=== PATIENT | male | born 1960 | race Caucasian/White ===

== ENCOUNTER 2019-02-24 12:01 | Emergency (ER) | payer BC ==
[~2019-02-24] VITALS: Ht 182.9 cm; Wt 102.1 kg
[2019-02-24 12:09] VITALS: BP 146/96
[2019-02-24] MEDS ORDERED: SYNTHROID75 MCG ORAL (12:39)
[2019-02-24] MEDS ORDERED: NEXIUM40 MG ORAL (12:39)
[2019-02-24] MEDS ORDERED: LEXAPRO10 MG ORAL (12:39)
[2019-02-24] MEDS ORDERED: FLOMAX0.4 MG ORAL (12:39)
[2019-02-24] MEDS: Mylanta II UD 30ml ORAL ONE (12:44)
[2019-02-24] MEDS: Dicyclomine HCl 10mg/5ml oral soln ORAL ONE (12:44)
[2019-02-24] MEDS: Lidocaine 2% Visc 15ml soln ORAL ONE (12:44)
[2019-02-24 12:55] LABS: ANION GAP 9 mmol/L (5-15); BLOOD UREA NITROGEN 15 mg/dL (7-18); CALCIUM 9.5 MG/DL (8.5-10.1); CARBON DIOXIDE 27 MMOL/L (21-32); CHLORIDE 105 MMOL/L (98-107); CREATININE 1.1 MG/DL (0.55-1.30); POTASSIUM 3.9 MMOL/L (3.5-5.1); SODIUM 141 MMOL/L (136-145)
[2019-02-24 13:01] LABS: ALANINE AMINOTRANSFERASE 28 U/L (12-78); ALBUMIN 4.3 G/DL (3.4-5.0); ALBUMIN/GLOBULIN RATIO 1.5 (1.0-2.7); ALKALINE PHOSPHATASE 50 U/L (46-116); ASPARTATE AMINO TRANSFERASE 21 U/L (15-37); BILIRUBIN,TOTAL 0.7 MG/DL (0.2-1.0)
[2019-02-24 13:04] LABS: BASOPHILS % (AUTO) 1.3 % (0.0-2.0); EOSINOPHILS % (AUTO) 1.1 % (0.0-3.0); HEMATOCRIT 49.1 % (42.0-52.0); HEMOGLOBIN 15.9 G/DL (14.2-18.0); LYMPHOCYTES % (AUTO) 30.8 % (20.0-45.0); MEAN CORPUSCULAR VOLUME 87 FL (80-99); MONOCYTES % (AUTO) 8.7 % (1.0-10.0); NEUTROPHILS % (AUTO) 58.1 % (45.0-75.0); PLATELET COUNT 176 K/UL (150-450); RED BLOOD COUNT 5.67 M/UL (4.70-6.10); RED CELL DISTRIBUTION WIDTH 12.4 % (11.6-14.8); WHITE BLOOD COUNT 7.9 K/UL (4.8-10.8)
--- NOTE | 2019-02-24 14:15 | Diagnostic Imaging Report ---
Indication: Right upper quadrant pain Technique: Chatman-scale and duplex images of the upper abdomen were obtained Comparison: none Findings: Gallbladder is unremarkable, without stones, wall thickening, nor pericholecystic fluid. Sonographic Tapia's sign is negative. Common bile duct measures 3 mm in diameter. No intrahepatic biliary ductal dilatation. Liver is borderline enlarged, demonstrates normal echogenicity, no focal abnormality. Portal vein and hepatic veins are patent. Pancreas is incompletely visualized due to overlying bowel gas, visualized portions are unremarkable. Spleen is borderline enlarged, measuring 12.9 cm long axis dimension. Left kidney measures 12.8 cm in length. Right kidney measures 11.9 cm length. Both kidneys demonstrate normal echogenicity. There is no hydronephrosis. There is a large right renal parapelvic cyst which measures 6.8 cm in diameter. No focal renal abnormality on the left . Abdominal aorta is obscured by bowel gas . Impression: Somewhat limited exam; bowel gas obscures aorta and portions of the pancreas Negative for gallstones or dilated ducts Borderline hepatomegaly Borderline splenomegaly Large right renal parapelvic cyst incidentally noted
[2019-02-24 14:42] LABS: APPEARANCE,URINE CLEAR; BILIRUBIN, URINE NEGATIVE (NEGATIVE); COLOR,URINE PALE YELLOW; GLUCOSE, URINE (UA) NEGATIVE (NEGATIVE); KETONES,URINE NEGATIVE (NEGATIVE); LEUKOCYTE ESTERASE ,URINE 1+ (NEGATIVE); NITRITE,URINE NEGATIVE (NEGATIVE); PH,URINE 7 (4.5-8.0); PROTEIN,URINE NEGATIVE (NEGATIVE); UROBILINOGEN,URINE NORMAL MG/DL (0.0-1.0)
--- NOTE | 2019-02-24 15:19 | Emergency Room Report ---
History of Present Illness General Chief Complaint: Abdominal Pain Source: Patient Present Illness HPI 58-year-old male presents to the emergency department complaining of 2 out of 10 severity right-sided abdominal pain off and on for 3 days. Patient also is reporting diarrhea x1 week. Denies nausea or vomiting, fevers or chills. He denies recent travel or ill contacts he also denies blood in the stool or black tarry stools. Patient reports history of IBS which he typically manages with OTC [place] medication. He reports he took some Imodium with no relief. Denies recent abx use. He also reports that he had similar symptoms 6 months ago and had a CAT scan performed and blood work all of which were normal. No specific aggravating or relieving factors. Denies migration of his pain. Denies dysuria, hematuria or hx of renal calculi. Allergies: Coded Allergies: No Known Allergies (Unverified , 02/24/19) Patient History Past Medical History: see triage record Past Surgical History: none Pertinent Family History: none Reviewed Nursing Documentation: PMH: Agreed; PSxH: Agreed Nursing Documentation-PMH Past Medical History: No History, Except For Hx Gastrointestinal Problems: Yes - IBS Review of Systems All Other Systems: negative except mentioned in HPI Physical Exam Vital Signs Date Time Temp Pulse Resp B/P (MAP) Pulse Ox O2 Delivery O2 Flow Rate FiO2 02/24/19 12:09 98.6 69 18 146/96 95 Room Air Sp02 EP Interpretation: reviewed, normal General Appearance: no apparent distress, alert, GCS 15, non-toxic Head: normocephalic, atraumatic Eyes: bilateral eye normal inspection, bilateral eye PERRL ENT: hearing grossly normal, normal voice Neck: full range of motion Respiratory: chest non-tender, lungs clear, normal breath sounds, speaking full sentences Cardiovascular #1: regular rate, rhythm Gastrointestinal: normal bowel sounds - hyperactive in all 4 quadrants, soft, non-distended, no guarding, tenderness - mild tenderness to deep palpation of the RUQ, little to no RLQ tenderness to deep palpation. Abdomen was soft. Rectal: deferred Musculoskeletal: back normal, gait/station normal, normal range of motion, non- tender Neurologic: alert, oriented x3, responsive, motor strength/tone normal, sensory intact, speech normal, grossly normal Psychiatric: judgement/insight normal Medical Decision Making PA Attestation Dr. Polanco is my supervising Physician whom patient management has been discussed with. Diagnostic Impression: Primary Impression: Abdominal pain Qualified Codes: R10.11 - Right upper quadrant pain Additional Impressions: Diarrhea Qualified Codes: R19.7 - Diarrhea, unspecified Renal cyst ER Course 58-year-old male presents to the emergency department complaining of 2 out of 10 severity right-sided abdominal pain off and on for 3 days. Patient also is reporting diarrhea x1 week. Denies nausea or vomiting, fevers or chills. He denies recent travel or ill contacts he also denies blood in the stool or black tarry stools. Patient reports history of IBS which he typically manages with OTC [place] medication. He reports he took some Imodium with no relief. Denies recent abx use. He also reports that he had similar symptoms 6 months ago and had a CAT scan performed and blood work all of which were normal. No specific aggravating or relieving factors. Denies migration of his pain. Denies dysuria, hematuria or hx of renal calculi. Ddx considered but are not limited to IBS exacerbation, Diverticulitis, acute appendicitis, diarrhea, UC, PUD, GE, pancreatitis, gallstone, renal calculi just to name a few. Vital signs: are WNL, pt. is afebrile H&PE are most consistent with IBS exacerbation - Pt has a fairly benign abdominal exam, non-toxic in appearance , NAD. ORDERS: -CBC, CMP, lipase, UA--All WNL - Abdominal US: "abnormal impression with : 6.8 right renal parapelvic cyst." Per official radiology report- Please see report for specific details. These findings were discussed with patient along with other findings mentioned by radiologist. Pt. was given a copy of the official report to take with him for follow up regarding the abnormal results. ED INTERVENTIONS: - Pepcid PO -GI Cocktail DISCHARGE: At this time pt. is stable for d/c to home. Will provide printed patient care instructions, and any necessary prescriptions. Care plan and follow up instructions have been discussed with the patient prior to discharge. Labs Test 02/24/19 12:38 02/24/19 14:35 White Blood Count 7.9 K/UL (4.8-10.8) Red Blood Count 5.67 M/UL (4.70-6.10) Hemoglobin 15.9 G/DL (14.2-18.0) Hematocrit 49.1 % (42.0-52.0) Mean Corpuscular Volume 87 FL (80-99) Mean Corpuscular Hemoglobin 28.1 PG (27.0-31.0) Mean Corpuscular Hemoglobin Concent 32.4 G/DL (32.0-36.0) Red Cell Distribution Width 12.4 % (11.6-14.8) Platelet Count 176 K/UL (150-450) Mean Platelet Volume 10.5 FL (6.5-10.1) Neutrophils (%) (Auto) 58.1 % (45.0-75.0) Lymphocytes (%) (Auto) 30.8 % (20.0-45.0) Monocytes (%) (Auto) 8.7 % (1.0-10.0) Eosinophils (%) (Auto) 1.1 % (0.0-3.0) Basophils (%) (Auto) 1.3 % (0.0-2.0) Sodium Level 141 MMOL/L (136-145) Potassium Level 3.9 MMOL/L (3.5-5.1) Chloride Level 105 MMOL/L (98-107) Carbon Dioxide Level 27 MMOL/L (21-32) Anion Gap 9 mmol/L (5-15) Blood Urea Nitrogen 15 mg/dL (7-18) Creatinine 1.1 MG/DL (0.55-1.30) Estimat Glomerular Filtration Rate > 60 mL/min (>60) Glucose Level 114 MG/DL (74-106) Calcium Level 9.5 MG/DL (8.5-10.1) Total Bilirubin 0.7 MG/DL (0.2-1.0) Aspartate Amino Transf (AST/SGOT) 21 U/L (15-37) Alanine Aminotransferase (ALT/SGPT) 28 U/L (12-78) Alkaline Phosphatase 50 U/L (46-116) Total Protein 7.1 G/DL (6.4-8.2) Albumin 4.3 G/DL (3.4-5.0) Globulin 2.8 g/dL Albumin/Globulin Ratio 1.5 (1.0-2.7) Lipase 112 U/L (73-393) Urine Color Pale yellow Urine Appearance Clear Urine pH 7 (4.5-8.0) Urine Specific [place] 1.010 (1.005-1.035) Urine Protein Negative (NEGATIVE) Urine Glucose (UA) Negative (NEGATIVE) Urine Ketones Negative (NEGATIVE) Urine Blood Negative (NEGATIVE) Urine Nitrite Negative (NEGATIVE) Urine Bilirubin Negative (NEGATIVE) Urine Urobilinogen Normal MG/DL (0.0-1.0) Urine Leukocyte Esterase 1+ (NEGATIVE) Urine RBC 0 /HPF (0 - 0) Urine WBC 0-2 /HPF (0 - 0) Urine Squamous Epithelial Cells Occasional /LPF Urine Bacteria Occasional /HPF (NONE) CT/MRI/US Diagnostic Results CT/MRI/US Diagnostic Results : Imaging Test Ordered: Abdominal US- Complete Impression "Impression: Somewhat limited exam; bowel gas obscures aorta and portions of the pancreas. Negative for gallstones or dilated ducts. Borderline hepatomegaly. Borderline splenomegaly Large right renal parapelvic cyst incidentally noted 6.8cm " -per official radiology report- Please see report for specific details. Last Vital Signs Date Time Temp Pulse Resp B/P (MAP) Pulse Ox O2 Delivery O2 Flow Rate FiO2 02/24/19 12:24 65 18 Room Air 02/24/19 12:09 98.6 146/96 (113 95 Disposition: HOME, SELF-CARE Condition: Stable Scripts Ranitidine Hcl* (ZANTAC*) 150 Mg Tablet 150 MG ORAL TWICE A DAY for 7 Days, #14 TAB Prov: Loly Valentin 02/24/19 Dicyclomine Hcl* (DICYCLOMINE HCL*) 10 Mg Capsule 10 MG ORAL QID, #20 CAP Prov: Loly Valentin 02/24/19 Referrals: NON PHYSICIAN (PCP) Patient Instructions: Abdominal Pain, Adult, Diarrhea, Adult, [id number] Additional Instructions: Take medications as directed. Follow up with a Primary Care Provider for a GI SPECIALIST REFERRAL within 3 -5 days, even if your symptoms have resolved. Take copy of US report showing abnormal findings of Right renal cyst with you. Return sooner to ED if new symptoms occur, or current symptoms become worse. - Please note that this Emergency Department Report was dictated using [employer] specialist technology software, occasionally this can lead to erroneous entry secondary to interpretation by the dictation equipment. Loly Valentin Feb 24, 2019 15:19
[2019-02-24] MEDS ORDERED: DICYCLOMINE HCL10 MG ORAL (15:21)
[2019-02-24] MEDS ORDERED: RANITIDINE HCL150 MG ORAL (15:21)
[2019-02-24 15:27] VITALS: BP 136/90
== END 2019-02-24 15:28 | disposition home or self-care (01) ==
LOC: EMR 12:30
DX: R10.9 Unspecified abdominal pain (principal); R19.7 Diarrhea, unspecified; N28.1 Cyst of kidney, acquired
CPT/HCPCS: 36415; 76700; 80053; 81003; 83690; 85025; 99284